=== PATIENT | female | born 1945 | race Caucasian/White ===

== ENCOUNTER → 2023-06-28 | Day surgery (SDC) | payer OTHER | END | disposition home or self-care (01) | LOC: SDS 10:21 → SMU 10:33 | PROVIDERS: ATTEND Radiology Diagnostic Radiology | DX: D49.2 Neoplasm of unspecified behavior of bone, soft tissue, and skin (principal) | CPT/HCPCS: 88108; 88172; 88173; 88304; 88305 ==